=== PATIENT | female | born 1995 | race Caucasian/White ===

== ENCOUNTER 2018-05-11 22:37 | Outpatient (CLI) | END 2018-05-12 00:15 | disposition home or self-care (01) ==

== ENCOUNTER 2018-05-12 06:50 | Inpatient (IN) | END 2018-05-14 13:30 | disposition home or self-care (01) | DRG 807 ==

== ENCOUNTER 2019-05-22 18:30 | Emergency (ER) | payer OTHER ==
[~2019-05-22] VITALS: Ht 149.9 cm; Wt 56.4 kg
[~2019-05-22 18:30] MED LIST: FER325 PO; IBUP-1542 PO; LORA10CA9 PO; ONDA4TAB14 PO; PREN1TAB13 PO; PSEU-83 PO
[2019-05-22 18:47] VITALS: Ht 149.9 cm; Wt 56.4 kg
[2019-05-22] MEDS ORDERED: DEXAMETHASONE 10 MG/ML 1 ML INJ PO ONE (20:00)
[2019-05-22] MEDS ORDERED: IBUPROFEN 600 MG TAB PO ONE (20:00)
[2019-05-22] MEDS ORDERED: ONDANSETRON (ODT) 4 MG TAB ODT STA (20:27)
[2019-05-22 20:59] VITALS: BP 115/78; PULSE 105; RESP 17
== END 2019-05-22 21:00 | disposition home or self-care (01) ==
LOC: FTE 18:30
DX: J32.9 Chronic sinusitis, unspecified (principal)
CPT/HCPCS: J1100; Z7502; Z7610; 99283